=== PATIENT | male | born 1995 ===

== ENCOUNTER 2020-10-17 11:15 | Emergency (ER) | payer SELFPAY ==
[~2020-10-17] VITALS: Ht 172.7 cm; Wt 70.8 kg
[2020-10-17 11:52] VITALS: Ht 172.7 cm; Wt 70.8 kg
[2020-10-17 12:52] VITALS: BP 120/76
== END 2020-10-17 12:52 | disposition home or self-care (01) ==
LOC: ED 11:15
DX: S01.81XA Laceration without foreign body of other part of head, initial encounter (principal); W51.XXXA Accidental striking against or bumped into by another person, initial encounter; Y93.66 Activity, soccer; Y92.89 Other specified places as the place of occurrence of the external cause; Y99.8 Other external cause status
CPT/HCPCS: 90715; J2001